=== PATIENT | male | born 1960 | race Caucasian/White ===

== ENCOUNTER 2022-06-14 10:50 | Emergency (ER) | payer OTHER, SELFPAY ==
[2022-06-14 11:18] VITALS: BP 159/88; PULSE 73; RESP 18; TEMP 36.4; O2SAT 95; BMI 31.6
--- NOTE | 2022-06-14 12:38 | ED_ITS ---
HPI - Eye Problem General Date Seen: 06/14/22 Chief complaint: Eye Problems Stated complaint: eye issue/left Time Seen by Provider: 06/14/22 11:23 Source: patient Mode of arrival: ambulatory Limitations: no limitations History of Present Illness HPI Narrative: Patient is a very nice 58 for old gentleman who was welding 3 days ago, and got something in his left eye, it has been progressively feels like a foreign body sensation is a little bit more blurry than the right eye. He did take off his welding glasses and says he got a bit of an arc injury also. But clearly left eye possibly got something in there. Not were contact lenses and he did try to flush it out at home. chief complaint: eye pain and eye redness Onset (ago): day(s) Onset description: sudden Duration: constant Location: left eye Eye Symptoms: redness, pain and foreign body sensation Place: work Mechanism: other (Occurred while welding) Severity: moderate If Pain, Quality: aching Associated symptoms: none Treatments Prior to Arrival: irrigated eye and OTC eye drops Related Data Patient tetanus UTD: Yes Home Medications Medication Instructions Recorded Confirmed No Known Home Medications 06/14/22 06/14/22 Allergies Allergy/AdvReac Type Severity Reaction Status Date / Time No Known Drug Allergies Allergy Verified 06/14/22 11:20 Review of Systems Status of ROS: Reports: 6 or more systems reviewed and unremarkable except as noted in History and below [facility] Social History Smoking Status: Current every day smoker Do you use any of these nicotine containing products: None Second hand tobacco smoke exposure: No How often do you have a drink containing alcohol: monthly or less AUDIT-C Alcohol total score: 1 Non-prescribed substance use: denies use service: No Exam Narrative: Exam Narrative: Examination of the left eye shows a foreign body at 11:00 a.m. position on the cornea. Alcaine was used, the took away the foreign body sensation. I was able to use the slit lamp lens then. And I was able to remove the foreign body. There are however was a rust ring, that was taken off by a 16 gauge needle by myself, patient tolerated this well. Fluorescein did not show any other deficits. I did also to speak with the the health spa manager in town, at the [facility]. I called the patient does he had left by then, and they wanted him to come over to be seen as he may need a bit of a bur procedure. Wei will head over there and be seen at the [facility] Const: Vital Signs, click to edit/add: Vital Signs - 24 hr 06/14/22 11:18 Temperature 97.6 F Pulse Rate [Femora l] 73 Respiratory Rate 18 Blood Pressure [Ri ght Upper Arm] 159/88 H Pulse Oximetry 95 Oxygen Delivery Me thod Room Air Documenting provider has reviewed patient's vital signs: yes Course Vital Signs Vital signs: Initial Vital Signs Temperature 97.6 F 06/14/22 11:18 Temperature Source Temporal Artery Scan 06/14/22 11:18 Pulse Rate 73 06/14/22 11:18 Respiratory Rate 18 06/14/22 11:18 Blood Pressure 159/88 H 06/14/22 11:18 Blood Pressure Mean 111 06/14/22 11:18 Blood Pressure Position Sitting 06/14/22 11:18 Pulse Oximetry 95 06/14/22 11:18 Oxygen Delivery Method 06/14/22 11:18 Vital Signs Temperature 97.6 F 06/14/22 11:18 Pulse Rate 73 06/14/22 11:18 Respiratory Rate 18 06/14/22 11:18 Blood Pressure 159/88 H 06/14/22 11:18 Pulse Oximetry 95 06/14/22 11:18 Oxygen Delivery Method 06/14/22 11:18 Temperature 97.6 F 06/14/22 11:18 Pulse Rate 73 06/14/22 11:18 Respiratory Rate 18 06/14/22 11:18 Blood Pressure 159/88 H 06/14/22 11:18 Pulse Oximetry 95 06/14/22 11:18 Oxygen Delivery Method 06/14/22 11:18 MDM - Eye Problem Differential Diagnosis Differential diagnosis: Likely corneal abrasion, conjunctivitis, acute iritis, hyphema, periorbital cellulitis, subconjunctival hemorrhage and corneal ulcer Medical Records Attestation: I reviewed the patient's medical records. Discharge Plan Discharge Clinical Impression: Corneal rust ring of left eye Acute foreign body of cornea Qualifiers: Encounter type: initial encounter Laterality: left Qualified Code(s): T15.02XA - Foreign body in cornea, left eye, initial encounter Corneal abrasion Qualifiers: Encounter type: initial encounter Laterality: left Qualified Code(s): S05.02XA - Injury of conjunctiva and corneal abrasion without foreign body, left eye, initial encounter Patient Disposition: Home, Self-Care Condition: Stable Additional Instructions: Discharge home, follow up tomorrow with her [facility], continue with eyedrops ibuprofen 100 mg, sunglasses, Prescriptions: No Action No Known Home Medications Follow Up/Referrals: Provider,Not a Local [Primary Care Provider] - Willian Leiva DO [Referring] - Stand Alone Forms: [facility] Info Instructions Procedures Eye Procedure Left: Location: cornea Topical anesthetic used: tetracaine Foreign body: metal Evidence of corneal penetration: No Technique: cotton tip swab and needle Procedure performed under: direct visualization with magnification and slit-lamp Post-procedure medication: topical anesthetic Complications: incomplete foreign body removal and residual rust ring Patient tolerated procedure: well and no complications
== END 2022-06-14 13:10 | disposition home or self-care (01) ==
PROVIDERS: Emergency Provider Family Medicine
DX: T15.02XA Foreign body in cornea, left eye, initial encounter (principal); W89.0XXA Exposure to welding light (arc), initial encounter
CPT/HCPCS: 65222; 99283